=== PATIENT | male | born 2000 | race Two or more races ===

== ENCOUNTER 2024-10-10 16:55 | Emergency (ER) | payer MEDICAID, SELFPAY ==
[2024-10-10 16:56] VITALS: BMI 25.0
[2024-10-10 17:15] VITALS: BP 136/88; PULSE 90; RESP 16; TEMP 37.4; O2SAT 97
--- NOTE | 2024-10-10 17:35 | XR_ITS ---
Examination: Hand, right 2 views Technique: Hand AP, lateral 2 views Date and time of exam: October 10, 2024 at 1643 hours INDICATIONS: Injured hand today, hand pain. FINDINGS: No acute fracture. No dislocation No foreign body IMPRESSION: No acute fracture
--- NOTE | 2024-10-10 17:37 | EDNOTE_ITS ---
ED Skin Abcess FB-RME/HPI General Chief complaint: Skin/Abscess/Foreign Body Stated complaint: FOREIGN OBJECT R HAND Time Seen by Provider: 10/10/24 17:34 Arrival date/time: 10/10/24 16:55 RME / HPI RME / HPI narrative: 24-year-old male patient was brought in by family for evaluation regarding possible right hand foreign body. Patient accidentally stabbed himself with a thorn from a cacti, resulting into puncture wound, patient pulled out the foreign body. Patient is concerned because he is having worsening pain to the pinky finger. Able to bend and extend the finger without any limitation. Tetanus vaccination is unknown. Related Data Previous Rx's ?Medication ?Instructions ?Recorded cephalexin 500 mg capsule 500 mg PO TID 7 days #21 cap s 10/10/24 ibuprofen 800 mg tablet 800 mg PO TID PRN pain #30 t abs 10/10/24 Allergies Allergy/AdvReac Type Severity Reaction Status Date / Time NKA Allergy Unknown Uncoded 02/28/03 22:45 Review of Systems Review of Systems Narrative Review of Systems: Review of system reviewed and within normal limits except mentioned in HPI ED Exam Narrative Physical exam: VITAL SIGNS: Reviewed. GENERAL APPEARANCE: Alert and interactive, follows commands, no acute distress, HEAD AND FACE: Non-traumatic. ENT: PERRL, pink conjunctivitis, eyelid no trauma, Mucous membrane moist. NECK: Supple, nontender, no nuchal rigidity. CHEST: No tenderness, no crepitus, no paradoxical movement, no retractions. LUNGS: Clear, well ventilated, symmetric, no rales, no wheezing, no ronchi, no stridor, good breath sounds bilaterally. HEART: Regular rate, regular rhythm, no murmur, no gallops. ABDOMEN: Soft, positive bowel sounds, nondistended, no guarding, nontender, no rebound, no masses, RECTAL: Deferred. GENITAL: Deferred. NEUROLOGICAL: Gross motor function intact sensory function intact, Appropriate for age. MUSCULOSKELETAL: low back nontender, full range of motion. EXTREMITIES: Puncture wound to the right hand fifth metacarpal area, with tenderness no palpable foreign body noted, full range of motion. SKIN: Color pink, dry, no rash, no lacerations, no abrasions, no contusions. LYMPHATICS: Deferred. Course Quality Measures none Orders Category Date Time Status XR hand RT 2V Stat Exams 10/10/24 17:35 Completed Ibuprofen Tab [Motrin Tab] Med 10/10/24 17:35 Discontinued 800 mg PO X1 ONE Tet,Diphth,Pertuss(Acell)-Tdap [Boostrix Vacc] Med 10/10/24 17:35 Discontinued 0.5 ml IMI .ONCE ONE cephALEXin [Keflex] Med 10/10/24 17:35 Discontinued 500 mg PO X1 ONE Vital Signs Vital signs: Vital Signs Temperature 99.3 F 10/10/24 17:15 Pulse Rate 90 10/10/24 17:15 Respiratory Rate 16 10/10/24 17:15 Blood Pressure 136/88 H 10/10/24 17:15 Pulse Oximetry (%) 97 10/10/24 17:15 Oxygen Delivery Method Room Air 10/10/24 17:15 Skin / Abscess / Foreign Body MDM Narrative MDM Narrative:: 24-year-old male patient was brought in by family for evaluation regarding possible right hand foreign body. Patient accidentally stabbed himself with a thorn from a cacti, resulting into puncture wound, patient pulled out the foreign body. Patient is concerned because he is having worsening pain to the pinky finger. Able to bend and extend the finger without any limitation. Tetanus vaccination is unknown. X-ray of the hand came back unremarkable. No foreign body noted. Patient received Keflex, Boostrix, and Motrin. Results discussed with the patient. Patient data External records reviewed:: None Clinical information provided by:: patient Social determinants that could affect healthcare access:: none Patient has the following chronic illnesses:: None How is presenting disease/condition affected by chronic disease/condition?: no chronic disease Evaluation data The following diagnostics were reviewed and interpreted by me:: radiology exam(s) Lab and/or radiology exams considered but not ordered:: None Interpretation Summary: None Medications / Prescriptions Medications or Prescriptions considered but not ordered:: None Medication administrations:: Medication Administration History Discontinued Medications Cephalexin HCl (Cephalexin 250 Mg Capsule) 500 mg PO X1 ONE Stop: 10/10/24 17:36 Last Admin: 10/10/24 18:26 Dose: 500 mg Documented By: OA Diphtheria/Tetanus/Acell Pertussis (Diphth,Pertuss(Acell),Tet Vac 0.5 Ml Syr- Adult) 0.5 ml IMi .ONCE ONE Stop: 10/10/24 17:36 Last Admin: 10/10/24 18:25 Dose: 0.5 ml Documented By: AMNA Ibuprofen (Ibuprofen Tab 400 Mg Tablet) 800 mg PO X1 ONE Stop: 10/10/24 17:36 Last Admin: 10/10/24 18:26 Dose: 800 mg Documented By: AMNA Keflex, Tdap, and Motrin Consultations Consultation(s) initiated? (list below): No Diagnosis Skin/Abscess Differential Diagnosis: other Most likely diagnosis given after review of the tests above:: Punctured wound none Admission Indicated Admission indicated?: not indicated Admission Request Was there a request for admission?: No Disposition Plan Disposition Plan: Discharge Discharge Attestation Discharge Attestation: The patient and all family members were given an opportunity to ask questions and understood the discharge instructions. Discharge instructions specifically effects, indications for sooner follow up or return to the emergency department, and the expected course of current diagnosis. Patient condition: Stable Discharge Plan Plan Patient Disposition: HOME (Self Care) Disposition Comment: stable Prescriptions/Referrals Prescriptions/Med Rec: New cephalexin 500 mg capsule 500 mg PO TID 7 Days Qty: 21 0RF ibuprofen 800 mg tablet 800 mg PO TID PRN (Reason: pain) Qty: 30 0RF Referrals: No Primary/Family,Physician [Primary Care Provider] - In 1 week Problem List Clinical Impression: Puncture wound of hand Patient/Caregiver Discharge Instructions Discharge Activity: activity as tolerated Education Materials: ED Puncture Wound (General) Additional Instructions: Thank you for the opportunity for serving you today. You are stable for discharged . You are advised to: Follow-up with your PCP in 1 to 2 days Return to ED for worsening of symptoms Increase oral fluids Take medication as prescribed Daily dressing with Neosporin as needed Print Language: Slovak Stand Alone Forms: Susannah Award Info., Patient Portal Info Letter PA/ALEXSANDRA Supervising Physician AYALA/ALEXSANDRA Supervising Physician: MD Angel
[2024-10-10] MEDS: DIPHTH,PERTUSS(ACELL),TET VAC 0.5 ML SYR- ADULT IMi (18:25)
[2024-10-10] MEDS: IBUPROFEN TAB 400 MG TABLET 800 MG PO (18:26)
[2024-10-10] MEDS: cephALEXin 250 MG CAPSULE 500 MG PO (18:26)
== END 2024-10-10 19:22 | disposition home or self-care (01) ==
PROVIDERS: Emergency Provider Emergency Medicine
DX: S61.431A Puncture wound without foreign body of right hand, initial encounter (principal); W45.8XXA Other foreign body or object entering through skin, initial encounter; Z23 Encounter for immunization
CPT/HCPCS: 73120; 90471; 90715; 99283; A9270

== ENCOUNTER 2024-10-12 07:10 | Emergency (ER) | payer MEDICAID, SELFPAY ==
[2024-10-12 07:21] VITALS: BP 138/90; PULSE 84; RESP 18; TEMP 36.7; O2SAT 97
[2024-10-12 07:23] VITALS: BMI 25.0
--- NOTE | 2024-10-12 07:31 | XR_ITS ---
Examination: Hand, right 3 views Technique: Hand AP, oblique, lateral 3 views Date and time of exam: October 12, 2024 0841 hours INDICATIONS: Patient stabbed by a cactus thorn fifth digit 2 days ago, pain and swelling FINDINGS: No fracture or dislocation No opaque foreign body IMPRESSION: No opaque foreign body
--- NOTE | 2024-10-12 07:35 | EDNOTE_ITS ---
Upper Extremity Injury RME/HPI General Chief Complaint: Hand/Wrist Problems Stated Complaint: SWOLLEN HAND Time Seen by Provider: 10/12/24 07:23 Source: patient Arrival date/time: 10/12/24 07:10 24-year-old male patient presents to the emergency department with complaints of right hand swelling. Patient accidentally stabbed himself with a thorn from a cacti, on 10/10/2024. Patient presents with a puncture wound lateral right dorsum hand. Reports that on time of incident there was no visible foreign body. This is a second ER visit this week presents today due to increased swelling and possible infection. Tetanus vaccination updated. Denies fever. Mode of arrival: ambulatory Related Data Previous Rx's ?Medication ?Instructions ?Recorded cephalexin 500 mg capsule 500 mg PO TID 7 days #21 cap s 10/10/24 ibuprofen 800 mg tablet 800 mg PO TID PRN pain #30 t abs 10/10/24 cephalexin 500 mg capsule 500 mg PO TID 7 days #21 cap s 10/12/24 ibuprofen 800 mg tablet 800 mg PO Q8H PRN pain #30 t abs 10/12/24 Allergies Allergy/AdvReac Type Severity Reaction Status Date / Time No Known Allergies Allergy Unverified 10/12/24 07:40 Review of Systems Review of Systems Systems Reviewed: All systems reviewed, normal except as documented Narrative Review of Systems: Gen: No fever, no chills, no weight loss EYES: No discharge, no visual changes, no pain HEENT: No ear pain, no congestion, no sore throat PULM: No shortness of breath, no cough, no congestion CV: No chest pain, no dyspnea on exertion, no palpitations GI: No nausea, no vomiting, no diarrhea, no pain, no constipation : No frequency, no urgency, no dysuria Musc/skel: right hand pain, no back pain Skin: No rash Psyc: No hallucinations, no depression Heme/Lymph: No easy bleeding or bruising tendencies Neuro: No weakness, no headache ED Exam Narrative Physical exam: General: Sittiing in Exam table in no acute distress, answering questions appropriately HENT: normocephalic, atraumatic, EOMI, PERRLA, moist mucous membranes Chest: chest wall is nontender Cardiac: regular rate and rhythm, normal S1 and S2, no murmurs, rubs, or gallops, capillary refill ?2 seconds Pulmonary: clear to auscultation bilaterally, no wheezing, crackles, or rhonchi Abdominal: active bowel sounds, soft, nontender, nondistended Neuro: A&OX3, CN II-XII intact, sensation grossly intact bilaterally in UE and LE. Skin: + Tenderness to dorsum of right hand mild erythemic no fluctuance noted. Or foreign body. Ext: no lower extremity edema Course Quality Measures none Orders Category Date Time Status XR hand comp RT min 3V Stat Exams 10/12/24 07:31 Taken cefTRIAXone [Rocephin] 1,000 mg Med 10/12/24 07:38 Discontinued Lidocaine 1% 20 ml [Xylocaine 1% 20 ML] 2.1 ml IM X1 Vital Signs Vital signs: Vital Signs Temperature 98.1 F 10/12/24 07:21 Pulse Rate 84 10/12/24 07:21 Respiratory Rate 18 10/12/24 07:21 Blood Pressure 138/90 H 10/12/24 07:21 Pulse Oximetry (%) 97 10/12/24 07:21 Oxygen Delivery Method Room Air 10/12/24 07:21 Extremity Injury MDM Narrative MDM Narrative:: 24-year-old male evaluated in the emergency department with complaints of possible foreign body and cellulitis pattern noted to his right dorsum hand. Again no foreign body noted on x-ray. No fractures. Patient is concerned of possible infection. 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 CMS intact no fluctuance noted no abscess noted. 1 g of Rocephin given here. Denies vaccination updated last visit. Advised to follow-up or establish care in the clinic. Take antibiotics as directed. Return to the emergency department this any worsening symptoms change in condition. Patient data External records reviewed:: [facility] previous records Clinical information provided by:: patient Social determinants that could affect healthcare access:: none Patient has the following chronic illnesses:: none How is presenting disease/condition affected by chronic disease/condition?: no chronic disease Evaluation data The following diagnostics were reviewed and interpreted by me:: radiology exam(s) Lab and/or radiology exams considered but not ordered:: No Interpretation Summary: Negative foreign body. Medications / Prescriptions Medications or Prescriptions considered but not ordered:: No Medication administrations:: Medication Administration History Discontinued Medications Ceftriaxone Sodium 1,000 mg/ (Lidocaine HCl 2.1 ml) 0 mg IM X1 ONE Stop: 10/12/24 07:39 Last Admin: 10/12/24 07:44 Dose: 1,000 mg Documented By: ZHENG All medications administered and effective Consultations Consultation(s) initiated? (list below): No Diagnosis Upper Extremity Injury Differential Diagnosis: sprain and strain of wrist and other (Cellulitis right hand, foreign body,) Most likely diagnosis given after review of the tests above:: Cellulitis right hand. Admission Indicated Admission indicated?: not indicated Admission Request Was there a request for admission?: No Disposition Plan Disposition Plan: Discharge Discharge Attestation Discharge Attestation: The patient and all family members were given an opportunity to ask questions and understood the discharge instructions. Discharge instructions specifically effects, indications for sooner follow up or return to the emergency department, and the expected course of current diagnosis. Patient condition: Stable Discharge Plan Plan Patient Disposition: HOME (Self Care) Prescriptions/Referrals Prescriptions/Med Rec: New cephalexin 500 mg capsule 500 mg PO TID 7 Days Qty: 21 0RF ibuprofen 800 mg tablet 800 mg PO Q8H PRN (Reason: pain) Qty: 30 0RF No Action cephalexin 500 mg capsule 500 mg PO TID 7 Days Qty: 21 0RF ibuprofen 800 mg tablet 800 mg PO TID PRN (Reason: pain) Qty: 30 0RF Referrals: Nathan Hector MD [Primary Care Provider] - In 1 week Problem List Clinical Impression: Puncture wound of hand, Cellulitis Patient/Caregiver Discharge Instructions Discharge Activity: activity as tolerated Education Materials: ED Cellulitis Additional Instructions: -No visible thorn or foreing body on xray -Please start antibiotic as directed. Keep area clean and dry. -Make sure you do warm compresses 15-20 minutes at a time 3 times a day. Then apply the ointment If you do not see any improvement in swelling or redness by morning please follow-up with your doctor. Otherwise can return to the emergency department for further evaluation. Print Language: Cymraes Stand Alone Forms: Susannah Award Info., Patient Portal Info Letter AYALA/ALEXSANDRA Supervising Physician AYALA/ALEXSANDRA Supervising Physician: Dr. Coronel
[2024-10-12] MEDS: cefTRIAXone 1,000 MG, LIDOCAINE 1% 20 ML 2.1 ML IM (07:44)
== END 2024-10-12 09:35 | disposition home or self-care (01) ==
PROVIDERS: Emergency Provider Emergency Medicine; PCP Family Medicine
DX: S61.236A Puncture wound without foreign body of right little finger without damage to nail, initial encounter (principal); L03.011 Cellulitis of right finger; W60.XXXA Contact with nonvenomous plant thorns and spines and sharp leaves, initial encounter
CPT/HCPCS: 73130; 96372; 99283; J0696; J3490